=== PATIENT | male | born 1970 | race Caucasian/White ===

== ENCOUNTER 2018-12-21 09:34 | Outpatient (CLI) | payer BC ==
--- NOTE | 2018-12-21 09:50 | RAD ---
2 views right elbow: 12/21/2018 COMPARISON: None HISTORY: Right elbow pain FINDINGS: No fracture or dislocation. No radiopaque foreign body or subcutaneous gas. No elbow joint effusion noted on the lateral view. Mild enthesophyte formation noted at the insertion of the triceps tendon. IMPRESSION: No acute findings.
== END 2018-12-21 09:35 | disposition home or self-care (01) ==
LOC: NAV RAD 09:34
PROVIDERS: ATTEND Internal Medicine
DX: M77.11 Lateral epicondylitis, right elbow (principal); S39.012D Strain of muscle, fascia and tendon of lower back, subsequent encounter; I10 Essential (primary) hypertension; E78.00 Pure hypercholesterolemia, unspecified